=== PATIENT | female | born 1990 | race Caucasian/White ===

== ENCOUNTER 2019-11-09 13:45 | Outpatient (CLI) | payer BC ==
--- NOTE | 2019-11-09 14:46 | MRI ---
MRI brain without and with gadolinium contrast HISTORY: Blurred vision. Dizziness. FINDINGS: There is no evidence there is no evidence of acute intracranial hemorrhage or infarct. The ventricles appear normal in size, shape and position. No mass effect, shift of midline structures, or abnormal areas of contrast enhancement. Globes have a normal appearance. No orbital mass. Visualiz ed paranasal sinuses remain well aerated. IMPRESSION: Normal exam.
== END 2019-11-09 13:46 | disposition home or self-care (01) ==
LOC: SCSMRI 13:45
PROVIDERS: ATTEND Nurse Practitioner Adult Health
DX: R42 Dizziness and giddiness (principal); R26.89 Other abnormalities of gait and mobility
CPT/HCPCS: 70553